=== PATIENT | female | born 1970 | race Hispanic/Latino ===

== ENCOUNTER 2017-03-18 13:37 | Emergency (ER) | payer OTHER ==
[~2017-03-18] VITALS: Ht 175.3 cm; Wt 83.9 kg
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
[2017-03-18 14:43] VITALS: BP 158/80
[2017-03-18] MEDS ORDERED: HYDROCHLOROTHIA25 M1 PO (14:53)
[2017-03-18] MEDS ORDERED: METOPROLOL TART25 M1 PO (14:53)
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
[2017-03-18] MEDS ORDERED: NORCO 5-325 TA1 EACH PO (15:15)
[2017-03-18] MEDS ORDERED: CYCLOBENZAPRINE5 M2 PO (15:15)
== END 2017-03-18 15:19 ==
LOC: ERH 13:37
DX: S16.1XXA Strain of muscle, fascia and tendon at neck level, initial encounter (principal); V49.40XA Driver injured in collision with unspecified motor vehicles in traffic accident, initial encounter; Y92.9 Unspecified place or not applicable